=== PATIENT | male | born 1965 | race Caucasian/White ===

== ENCOUNTER 2018-04-10 16:54 | Emergency (ER) | payer BC ==
[~2018-04-10] VITALS: Ht 167.6 cm; Wt 88.0 kg
[~2018-04-10 16:54] MED LIST: Antivert25 MG PO; OMEP20ER
[2018-04-10] MEDS ORDERED: Tasprin325 MG PO (16:58)
[2018-04-10] MEDS ORDERED: CEPH500 (17:23)
[2018-04-10] MEDS ORDERED: Augmentin 875-1 EACH PO (17:26)
== END 2018-04-10 17:33 | disposition home or self-care (01) ==
LOC: ER 16:54
DX: L60.0 Ingrowing nail (principal); Z88.1 Allergy status to other antibiotic agents; Z79.82 Long term (current) use of aspirin; Z79.899 Other long term (current) drug therapy
CPT/HCPCS: 99282

== ENCOUNTER 2018-07-31 08:12 | Day surgery (SDC) | payer BC ==
[~2018-07-31] VITALS: Ht 167.6 cm; Wt 87.0 kg
[~2018-07-31 08:12] MED LIST changes: +ALLERGY RELIEF1 EAC2 PO; +ASPI325EC PO; +Augmentin 875-1 EACH PO; +CEPH500; +Ibuprofen Ib200 MG PO; +Lovastatin10 MG PO; +Tasprin325 MG PO
[2018-07-31] MEDS ORDERED: Prilosec10 M1 PO (08:52)
--- NOTE | 2018-07-31 12:54 | NUR ---
PT AMBULATES TO AND FROM RESTROOM WITHOUT DIFF. VSS. NADN. R RADIAL TR BAND STABLE. CALL LIGHT WITHIN REACH.
[2018-07-31] MEDS ORDERED: Toprol Xl25 MG PO (13:34)
--- NOTE | 2018-07-31 14:00 | NUR ---
SMALL HEMATOMA NOTED. PRESSURE DRESSING APPLIED. WILL CONTINUE TO MONITOR.
--- NOTE | 2018-07-31 15:24 | NUR ---
DISCHARGE PT REMAINED A&OX3 AND DENIED ANY PAIN DURING RECOVERY. TR BAND REMOVED-QUESTIONABLE HEMATOMA THE SIZE OF A DIME NOTED WHEN REMOVING TR BAND OFF-PRESSURE DRESSING APPLIED FOR EXTRA SUPPORT FOR 30 MIN. AFER 30 MIN. PRESSURE DRESSING WAS REMOVED-QUESTIONABLE HEMATOMA RESOLVED. A LIGHT PRESSURE DRESSING PLACED WITH WHITE ARMBOARD IN PLACE FOR PT TO REMOVE LATER TODAY . IV DC'D WITH CANULA INTACT. PT UP TO RESTROOM WITH EASE. PT ABLE TO DRESS SELF INDEPENDANTLY. ESCORT HERE TO WHEELE PT OUT FOR TAXI RIDE HOME.
== END 2018-07-31 14:50 | disposition home or self-care (01) ==
LOC: MHTC 08:12
DX: I25.10 Atherosclerotic heart disease of native coronary artery without angina pectoris (principal); R07.9 Chest pain, unspecified; E78.5 Hyperlipidemia, unspecified
CPT/HCPCS: 93454; 99152; 99153; C1769; C1894; J1644; J2250; J3010; J7030; Q9967

== ENCOUNTER 2020-12-31 08:50 | Day surgery (SDC) | payer OTHER ==
[~2020-12-31] VITALS: Ht 170.2 cm; Wt 91.3 kg
[~2020-12-31 08:50] MED LIST changes: +Prilosec10 M1 PO; +Toprol Xl25 MG PO
--- NOTE | 2020-12-31 09:26 | NUR ---
History, Chart, Medications and Allergies reviewed before start of procedure. Lungs clear T/O to Auscultation. Patient confirms NPO status and agrees with scheduled surgery. Patient states colon prep results clear. Pre-Op teaching done. Pt verbalizes understanding. Patient States Post-Procedure ride home has been arranged.
--- NOTE | 2020-12-31 09:54 | NUR ---
12/31/20 0954 LORRIE PHILLIP History, Chart, Medications and Allergies reviewed before start of procedure. 3-LEAD EKG REVIEWED WITH PHYSICIAN PRIOR TO START OF PROCEDURE. O2 VIA N/C INTACT THROUGHOUT SEDATION/PROCEDURE. MONITOR INTACT WITH CONTINUOUS PULSE OXIMETRY AND INTERMITTENT BP. PATIENT DETERMINED TO BE ASA APPROPRIATE FOR PROPOFOL SEDATION PRIOR TO START OF PROCEDURE BY .
--- NOTE | 2020-12-31 11:00 | NUR ---
Patient up to Ambulate independently. Gait steady. Discharge instructions reviewed with patient. Patient verbalizes understanding. Copy given to patient to take home. Discharged via wheelchair to private car for ride home.
== END 2020-12-31 23:21 | disposition home or self-care (01) ==
LOC: ORSCMMR 08:50 → ORD 10:00 → ORSCMMR 10:00
PROVIDERS: Internal Medicine Gastroenterology
PROC: 0DJD8ZZ Inspection of Lower Intestinal Tract, Via Natural or Artificial Opening Endoscopic (ICD-10-PCS; principal; 2020-12-31 10:00)
DX: Z12.11 Encounter for screening for malignant neoplasm of colon (principal); K64.4 Residual hemorrhoidal skin tags; I25.10 Atherosclerotic heart disease of native coronary artery without angina pectoris; Z79.82 Long term (current) use of aspirin; Z79.899 Other long term (current) drug therapy
CPT/HCPCS: J2704; J7120

== ENCOUNTER 2021-06-18 16:40 | Emergency (ER) | payer OTHER ==
[~2021-06-18] VITALS: Ht 167.6 cm; Wt 90.7 kg
[2021-06-18 21:17] LABS: Alanine Aminotransfer (ALT/SGP 75 U/L (12-78); Alk Phos 55 U/L (50-136); Anion Gap 8 mmol/L (6-16); Aspartate Aminotrans (AST/SGOT 36 U/L (12-37); Bilirubin, Total 0.9 mg/dL (0.1-1.0); Blood Urea Nitrogen 15 mg/dL (8-24); Bun/Creatinine Ratio 17.7 (12.0-20.0); CO2, Blood 24 mmol/L (21-32); Calcium, Blood 9.5 mg/dL (8.5-10.1); Chloride, Blood 107 mmol/L (98-108); Creatinine, Blood 0.85 mg/dL (0.60-1.20); Glomerular Filtration Rate >60 (60-); Glucose, Blood 98 mg/dL (70-99); Potassium, Blood 4.2 mmol/L (3.5-5.5); Sodium, Blood 139 mmol/L (136-145)
[2021-06-18 21:36] LABS: BASOPHILS ABSOLUTE AUTO 0.06 K/mm3 (0.00-0.23); BASOPHILS PERCENT AUTO 1 % (0-2); EOSINOPHILS ABSOLUTE AUTO 0.18 K/mm3 (0.00-0.68); EOSINOPHILS PERCENT AUTO 3 % (0-6); Hematocrit 48.6 % (37.0-53.0); Hemoglobin 16.7 g/dL (13.5-17.5); IMMATURE GRAN ABSOLUTE AUTO 0.02 K/mm3 (0.00-0.10); IMMATURE GRAN PERCENT AUTO 0 % (0-1); LYMPHOCYTES ABSOLUTE AUTO 1.36 K/mm3 (0.84-5.20); LYMPHOCYTES PERCENT AUTO 22 % (21-46); MONOCYTES ABSOLUTE AUTO 0.56 K/mm3 (0.16-1.47); MONOCYTES PERCENT AUTO 9 % (4-13); Mean Corpuscular HGB 29.2 pg (26.0-34.0); Mean Corpuscular HGB Conc 34.4 g/dL (31.5-36.5); Mean Corpuscular Volume 85 fL (80-100); Mean Platelet Volume 11.2 fL (9.1-12.4); NEUTROPHILS ABSOLUTE AUTO 4.15 K/mm3 (1.96-9.15); NEUTROPHILS PERCENT AUTO 66 % (41-73); Platelet Count 221 K/mm3 (150-400); RDW Coefficient Variation 12.6 % (11.7-14.2); Red Blood Cell Count 5.71 M/mm3 (4.30-5.90); White Blood Cell Count 6.33 K/mm3 (4.00-11.30)
[2021-06-18] MEDS ORDERED: ONDA4ODT MM (23:00)
== END 2021-06-18 23:25 | disposition home or self-care (01) ==
LOC: ER 16:40
PROVIDERS: Emergency Medicine
DX: R51.9 Headache, unspecified (principal); I25.10 Atherosclerotic heart disease of native coronary artery without angina pectoris; Z88.1 Allergy status to other antibiotic agents; Z88.8 Allergy status to other drugs, medicaments and biological substances; Z79.899 Other long term (current) drug therapy; Z79.82 Long term (current) use of aspirin; Z87.891 Personal history of nicotine dependence
CPT/HCPCS: 70470; 80053; 85025; 96374; 96375; 99284-25; A9270; J1200; J1885; J2765; Q9967